=== PATIENT | female | born 1990 | race Two or more races ===

== ENCOUNTER 2024-03-01 05:04 | Inpatient (IN) | payer MEDICAID ==
[~2024-03-01] VITALS: Ht 188 cm; Wt 159.7 kg
[~2024-03-01 05:04] MED LIST: DOCU-94 PO; GLYC2SUP PR; NABU-72 PO
[2024-03-01 06:19] LABS: Basophils # (auto) 0 10 ^3/uL (0-0.2); Basophils % (auto) 0.4 % (0.0-2.0); Eosinophils # (auto) 0.2 10 ^3/uL (0-0.8); Eosinophils % (auto) 2.4 % (0.0-7.0); Hematocrit 36.9 % (36.0-46.0); Hemoglobin 12.4 g/dL (12.2-16.2); Lymphocytes # (auto) 2.5 10 ^3/uL (0.4-5.4); Lymphocytes % (auto) 25.1 % (10.0-50.0); Mean Corpuscular Hemoglobin 27.6 pg (28.0-32.0); Mean Corpuscular Hgb Conc. 33.6 g/dL (32.0-36.0); Mean Corpuscular Volume 82.2 fL (80.0-100.0); Monocytes # (auto) 0.6 10 ^3/uL (0-1.3); Monocytes % (auto) 5.9 % (0.0-12.0); Neutrophils # (auto) 6.5 10 ^3/uL (1.6-8.6); Neutrophils % (auto) 66.2 % (37.0-80.0); Platelet Count (auto) 320 10^3/uL (140-450); Red Blood Cells 4.48 10^6/uL (4.0-5.20); Red Cell Distribution Width 15.5 % (11.8-14.3); White Blood Cell 9.8 10^3/uL (4.4-10.8)
[2024-03-01 06:20] VITALS: PULSE 78; RESP 13; O2SAT 96
[2024-03-01] MEDS: MORPHINE SULFATE 4 MG/ML SYR/VIAL IV ONE ×2 (06:27→11:11)
[2024-03-01] MEDS: ONDANSETRON HCL 4 MG/2 ML VIAL IV ONE ×2 (06:28→11:10)
[2024-03-01] MEDS: PANTOPRAZOLE 40 MG/10 ML VIAL INJ IV ONE (06:28)
[2024-03-01] MEDS: SODIUM CHLORIDE 0.9% 1,000 ML IVB ONE (06:29)
[2024-03-01 06:34] LABS: Alanine Aminotransferase 16 U/L (7-40); Albumin 4.5 g/dL (3.2-4.8); Alkaline Phosphatase 93 U/L (46-116); Anion Gap 6 (5-15); Aspartate Aminotransferase 9 U/L (13-40); BUN/Creatinine Ratio 12.4 (10.0-20.0); Bilirubin, Total 0.5 mg/dL (0.2-1.0); Blood Urea Nitrogen 11 mg/dL (9-23); Calcium 9.5 mg/dL (8.7-10.4); Carbon Dioxide 27 mmol/L (20-31); Chloride 106 mmol/L (98-107); Glucose 108 mg/dL (74-106); Lipase 29 U/L (12-53); Potassium 3.8 mmol/L (3.5-5.1); Sodium 139 mmol/L (136-145); Total Protein 7.1 g/dL (5.7-8.2)
[2024-03-01 07:52] VITALS: PULSE 78; RESP 13; O2SAT 96
[2024-03-01] MEDS ORDERED: ONDANSETRON HCL 4 MG/2 ML VIAL IV PRN (10:30)
[2024-03-01] MEDS ORDERED: MORPHINE SULFATE INJ 2 MG/ml SYRG IV PRN (10:30)
[2024-03-01 10:36] LABS: Urine Bacteria FEW /hpf (None Seen); Urine Blood Negative /uL (Negative); Urine Clarity Turbid (Clear); Urine Color Light-Yellow (Yellow); Urine Protein, UAD Negative (Negative); Urine Urobilinogen Normal (Negative); Urine WBC 1 /hpf (0 - 5); Urine pH 5.5 (5.0-9.0)
[2024-03-01] MEDS ORDERED: ceFAZolin 1GM/50ML 50 ML IV SCH ×2 (14:00→22:00)
[2024-03-01] MEDS: ceFAZolin 1GM/50ML 50 ML IV SCH (14:35)
[2024-03-01] MEDS: MORPHINE SULFATE INJ 2 MG/ml SYRG IV PRN (14:40)
[2024-03-01 19:10] VITALS: PULSE 71; RESP 14; O2SAT 96
[2024-03-01] MEDS: ONDANSETRON HCL 4 MG/2 ML VIAL IV PRN (20:17)
[2024-03-01 21:03] VITALS: PULSE 66; RESP 20; O2SAT 97
[2024-03-01 22:00] VITALS: BP 123/79; PULSE 66; RESP 20; TEMP 98; O2SAT 97
[2024-03-02] VITALS (7 sets, daily range): BP systolic 100–123; BP diastolic 60–83; PULSE 56–73; RESP 13–24; TEMP 97.6–98.3; O2SAT 95–99
[2024-03-02 06:51] LABS: Basophils # (auto) 0 10 ^3/uL (0-0.2); Basophils % (auto) 0.4 % (0.0-2.0); Eosinophils # (auto) 0.2 10 ^3/uL (0-0.8); Eosinophils % (auto) 2.9 % (0.0-7.0); Hematocrit 38.4 % (36.0-46.0); Hemoglobin 12.3 g/dL (12.2-16.2); Lymphocytes # (auto) 1.9 10 ^3/uL (0.4-5.4); Lymphocytes % (auto) 23.2 % (10.0-50.0); Mean Corpuscular Hemoglobin 27.1 pg (28.0-32.0); Mean Corpuscular Volume 84.5 fL (80.0-100.0); Monocytes # (auto) 0.6 10 ^3/uL (0-1.3); Monocytes % (auto) 6.8 % (0.0-12.0); Neutrophils # (auto) 5.5 10 ^3/uL (1.6-8.6); Neutrophils % (auto) 66.7 % (37.0-80.0); Platelet Count (auto) 285 10^3/uL (140-450); Red Blood Cells 4.54 10^6/uL (4.0-5.20); Red Cell Distribution Width 15.4 % (11.8-14.3); White Blood Cell 8.2 10^3/uL (4.4-10.8)
[2024-03-02 09:15] LABS: Anion Gap 8 (5-15); Calcium 9.3 mg/dL (8.7-10.4); Carbon Dioxide 24 mmol/L (20-31); Chloride 107 mmol/L (98-107); Potassium 4.3 mmol/L (3.5-5.1); Sodium 139 mmol/L (136-145)
[2024-03-02 09:21] LABS: BUN/Creatinine Ratio 7.4 (10.0-20.0); Blood Urea Nitrogen 7 mg/dL (9-23); Glucose 141 mg/dL (74-106)
[2024-03-02] MEDS ORDERED: GLYCOPYRROLATE 0.2 MG/ML 1ML VIAL ONE (13:26)
[2024-03-02] MEDS ORDERED: PROPOFOL 10 MG/ML 20 ML IV ONE (13:26)
[2024-03-02] MEDS ORDERED: LIDOCAINE 2% (LOCAL ANESTH.) PF 5ml SDV ONE (13:26)
[2024-03-02] MEDS ORDERED: MIDAZOLAM HCL 2MG/2ML 2ml VIAL (1mg/ml) ONE (13:26)
[2024-03-02] MEDS ORDERED: fentaNYL CITRATE 100 MCG/2 ML VL ONE (13:26)
[2024-03-02] MEDS: ONDANSETRON HCL 4 MG/2 ML VIAL IV ONE (14:00)
[2024-03-02] MEDS ORDERED: HYDROmorphone HCL 2 MG/ML VL/or syr IV PRN (14:00)
[2024-03-02 16:39] LABS: Folate (Folic Acid) 10.69 ng/mL (>5.38)
[2024-03-03 01:00] VITALS: BP 105/66; PULSE 93; RESP 19; TEMP 98.2; O2SAT 95
[2024-03-03 05:00] VITALS: BP 112/73; PULSE 68; RESP 17; TEMP 97.6; O2SAT 94
[2024-03-03] MEDS: PANTOPRAZOLE 40 MG TAB PO SCH (05:37)
[2024-03-03] MEDS: ACETAMINOPHEN 325 MG TAB PO PRN (06:05)
[2024-03-03 06:43] LABS: Chloride 109 mmol/L (98-107); Potassium 4.1 mmol/L (3.5-5.1); Sodium 140 mmol/L (136-145)
[2024-03-03 06:44] LABS: Anion Gap 7 (5-15); Calcium 9.2 mg/dL (8.7-10.4); Carbon Dioxide 24 mmol/L (20-31)
[2024-03-03 06:49] LABS: BUN/Creatinine Ratio 5.6 (10.0-20.0); Blood Urea Nitrogen 5 mg/dL (9-23); Glucose 87 mg/dL (74-106)
[2024-03-03 07:01] LABS: Basophils # (auto) 0 10 ^3/uL (0-0.2); Basophils % (auto) 0.5 % (0.0-2.0); Eosinophils # (auto) 0.2 10 ^3/uL (0-0.8); Hematocrit 36.3 % (36.0-46.0); Hemoglobin 12.1 g/dL (12.2-16.2); Lymphocytes # (auto) 2.2 10 ^3/uL (0.4-5.4); Mean Corpuscular Hemoglobin 27.8 pg (28.0-32.0); Mean Corpuscular Hgb Conc. 33.2 g/dL (32.0-36.0); Mean Corpuscular Volume 83.5 fL (80.0-100.0); Monocytes # (auto) 0.5 10 ^3/uL (0-1.3); Monocytes % (auto) 5.6 % (0.0-12.0); Neutrophils # (auto) 5.2 10 ^3/uL (1.6-8.6); Neutrophils % (auto) 64.9 % (37.0-80.0); Nucleated Red Blood Cells % 0.2 %; Platelet Count (auto) 244 10^3/uL (140-450); Red Blood Cells 4.34 10^6/uL (4.0-5.20); Red Cell Distribution Width 15.4 % (11.8-14.3)
[2024-03-03 08:50] VITALS: BP 101/54; PULSE 66; RESP 18; TEMP 98.8; O2SAT 94
[2024-03-03] MEDS: ERGOCALCIFEROL 50,000 UNIT(1.25MG) CAP PO SCH (11:02)
[2024-03-03] MEDS: OMNIPAQUE 12mg/ml 500ml ORAL SOLUTION PO ONE (11:39)
[2024-03-03 13:00] VITALS: BP 124/78; PULSE 74; RESP 20; TEMP 98.4; O2SAT 96
[2024-03-03 16:40] VITALS: BP 124/79; PULSE 55; RESP 20; TEMP 98.2; O2SAT 97
[2024-03-03 21:00] VITALS: BP 109/76; PULSE 75; RESP 19; TEMP 98.3; O2SAT 93
[2024-03-04] VITALS (7 sets, daily range): BP systolic 107–124; BP diastolic 56–74; PULSE 64–96; RESP 18–20; TEMP 97.8–98.5; O2SAT 91–99
[2024-03-04] MEDS: FAMOTIDINE (10MG/ML) 2ML VL IV ONE (10:44)
[2024-03-04] MEDS ORDERED: HYDROmorphone HCL 2 MG/ML VL/or syr ONE (10:46)
[2024-03-04] MEDS ORDERED: MIDAZOLAM HCL 2MG/2ML 2ml VIAL (1mg/ml) ONE (10:46)
[2024-03-04] MEDS ORDERED: fentaNYL CITRATE 100 MCG/2 ML VL ONE (10:46)
[2024-03-04] MEDS ORDERED: ePHEDrine SULFATE 50 MG/ML AMP ONE (10:47)
[2024-03-04] MEDS ORDERED: GLYCOPYRROLATE 0.2 MG/ML 1ML VIAL ONE (10:47)
[2024-03-04] MEDS ORDERED: LIDOCAINE 2% (LOCAL ANESTH.) PF 5ml SDV ONE (10:47)
[2024-03-04] MEDS ORDERED: PROPOFOL 10 MG/ML 20 ML IV ONE (10:47)
[2024-03-04] MEDS ORDERED: PHENYLEPHRINE HCL 10 MG/ML VL ONE (10:47)
[2024-03-04] MEDS ORDERED: DexAMETHasone SOD PHOS 10MG/1ML VIAL INJ ONE (10:47)
[2024-03-04] MEDS ORDERED: KETOROLAC TROMETH 30 MG/ML 1ML VIAL ONE (10:47)
[2024-03-04] MEDS ORDERED: ONDANSETRON HCL 4 MG/2 ML VIAL ONE (10:47)
[2024-03-04] MEDS ORDERED: ROCURONIUM 10MG/ML 10ML VIAL IV ONE (10:50)
[2024-03-04 11:05] LABS: Basophils # (auto) 0 10 ^3/uL (0-0.2); Basophils % (auto) 0.4 % (0.0-2.0); Eosinophils # (auto) 0.1 10 ^3/uL (0-0.8); Eosinophils % (auto) 1.8 % (0.0-7.0); Hematocrit 38.9 % (36.0-46.0); Hemoglobin 12.7 g/dL (12.2-16.2); Lymphocytes # (auto) 1.6 10 ^3/uL (0.4-5.4); Lymphocytes % (auto) 20.4 % (10.0-50.0); Mean Corpuscular Hemoglobin 27.3 pg (28.0-32.0); Mean Corpuscular Hgb Conc. 32.7 g/dL (32.0-36.0); Mean Corpuscular Volume 83.5 fL (80.0-100.0); Monocytes # (auto) 0.5 10 ^3/uL (0-1.3); Monocytes % (auto) 6.5 % (0.0-12.0); Neutrophils # (auto) 5.4 10 ^3/uL (1.6-8.6); Neutrophils % (auto) 70.9 % (37.0-80.0); Nucleated Red Blood Cells % 0.1 %; Platelet Count (auto) 268 10^3/uL (140-450); Red Blood Cells 4.66 10^6/uL (4.0-5.20); Red Cell Distribution Width 15.3 % (11.8-14.3); White Blood Cell 7.6 10^3/uL (4.4-10.8)
[2024-03-04 11:12] LABS: Anion Gap 6 (5-15); Carbon Dioxide 28 mmol/L (20-31); Chloride 108 mmol/L (98-107); Potassium 4.3 mmol/L (3.5-5.1); Sodium 142 mmol/L (136-145)
[2024-03-04 11:13] LABS: Calcium 9.8 mg/dL (8.7-10.4)
[2024-03-04] MEDS: ONDANSETRON HCL 4 MG/2 ML VIAL IV ONE (11:15)
[2024-03-04] MEDS ORDERED: HYDROmorphone HCL 2 MG/ML VL/or syr IV PRN (11:15)
[2024-03-04 11:18] LABS: BUN/Creatinine Ratio 8.5 (10.0-20.0); Blood Urea Nitrogen 8 mg/dL (9-23); Glucose 96 mg/dL (74-106)
[2024-03-04 11:19] LABS: INR 1.08 (0.9-1.15); Prothrombin Time 11.4 sec (9.3-11.8)
[2024-03-04] MEDS: DEXTROSE IV ONE (11:20)
[2024-03-04] MEDS: CEFAZOLIN IV ONE (11:20)
[2024-03-04] MEDS: LIDOCAINE W/ EPINEPHRINE 1% 20ML VIAL ONE (12:04)
[2024-03-04] MEDS ORDERED: SUGAMMADEX 200mg/2ml Vial (100MG/ML) IV ONE (12:18)
[2024-03-04] MEDS ORDERED: MEPERIDINE HCL (50 MG/ML) 1 ML VIAL ONE (12:23)
[2024-03-05 01:00] VITALS: BP 103/61; PULSE 65; RESP 18; TEMP 98.2; O2SAT 94
[2024-03-05 05:00] VITALS: BP 104/78; PULSE 70; RESP 19; TEMP 98.3; O2SAT 98
[2024-03-05 05:46] LABS: Basophils # (auto) 0 10 ^3/uL (0-0.2); Eosinophils # (auto) 0 10 ^3/uL (0-0.8); Hematocrit 35.6 % (36.0-46.0); Hemoglobin 11.7 g/dL (12.2-16.2); Lymphocytes # (auto) 0.9 10 ^3/uL (0.4-5.4); Lymphocytes % (auto) 8.6 % (10.0-50.0); Mean Corpuscular Hemoglobin 27.1 pg (28.0-32.0); Mean Corpuscular Volume 82.4 fL (80.0-100.0); Monocytes # (auto) 0.4 10 ^3/uL (0-1.3); Monocytes % (auto) 3.8 % (0.0-12.0); Neutrophils # (auto) 9.5 10 ^3/uL (1.6-8.6); Neutrophils % (auto) 87.6 % (37.0-80.0); Platelet Count (auto) 303 10^3/uL (140-450); Red Blood Cells 4.32 10^6/uL (4.0-5.20); Red Cell Distribution Width 15.1 % (11.8-14.3); White Blood Cell 10.9 10^3/uL (4.4-10.8)
[2024-03-05 05:56] LABS: Anion Gap 6 (5-15); Carbon Dioxide 28 mmol/L (20-31); Chloride 106 mmol/L (98-107); Potassium 4.4 mmol/L (3.5-5.1); Sodium 140 mmol/L (136-145)
[2024-03-05 05:57] LABS: Calcium 9.8 mg/dL (8.7-10.4)
[2024-03-05 06:02] LABS: Blood Urea Nitrogen 9 mg/dL (9-23); Glucose 136 mg/dL (74-106)
[2024-03-05 08:54] VITALS: BP 116/73; PULSE 52; RESP 18; TEMP 97.6; O2SAT 96
[2024-03-05 12:27] VITALS: BP 115/65; PULSE 56; RESP 18; TEMP 98; O2SAT 93
== END 2024-03-05 13:40 | disposition home or self-care (01) | DRG 228 ==
LOC: ER 05:04 → OVERFLOW 10:41 → WEST WING 21:03
PROVIDERS: ADMIT Internal Medicine Geriatric Medicine; ATTEND Internal Medicine Geriatric Medicine
PROC: 0DB98ZX Excision of Duodenum, Via Natural or Artificial Opening Endoscopic, Diagnostic (ICD-10-PCS; 2024-03-02)
PROC: 0DB68ZX Excision of Stomach, Via Natural or Artificial Opening Endoscopic, Diagnostic (ICD-10-PCS; 2024-03-02)
PROC: 0WQF0ZZ Repair Abdominal Wall, Open Approach (ICD-10-PCS; principal; 2024-03-04 11:20)
DX: K42.0 Umbilical hernia with obstruction, without gangrene (principal); L03.311 Cellulitis of abdominal wall; K29.90 Gastroduodenitis, unspecified, without bleeding; K29.70 Gastritis, unspecified, without bleeding; K44.9 Diaphragmatic hernia without obstruction or gangrene; F17.210 Nicotine dependence, cigarettes, uncomplicated; K43.9 Ventral hernia without obstruction or gangrene; E28.2 Polycystic ovarian syndrome; E55.9 Vitamin D deficiency, unspecified; E66.01 Morbid (severe) obesity due to excess calories; Z68.42 Body mass index [BMI] 45.0-49.9, adult; Z79.899 Other long term (current) drug therapy
CPT/HCPCS: 36415; 74176; 76705; 80048; 80053; 81001; 82306; 82607; 82746; 83036; 83690; 84443; 84702; 85025; 85610; 86850; 86900; 86901; 87086; 96365; 96375; 99291; G0378; J1100; J1885; J2003; J2250; J2405; J2470; J2704; J3490